=== PATIENT | male | born 1995 ===

== ENCOUNTER 2017-03-13 03:40 | Emergency (ER) | payer SELFPAY ==
[2017-03-13 03:53] VITALS: BP 123/69; PULSE 66; RESP 16; TEMP 98.7; O2SAT 100
--- NOTE | 2017-03-13 05:39 | ED PDOC ---
HPI: Psych/Substance Abuse Time Seen by Provider: 03/13/17 04:00 Chief Complaint (Nursing): Psychiatric Evaluation Chief Complaint (Provider): asad eval Additional Complaint(s): 21yo M in ED for eval of possible SI. His ex-partner called the police stating that she was receiving text messages from pt stating he wanted to kill himself. Pt denies SI/HI or hallucinations. Past Medical History Reviewed: Historical Data, Nursing Documentation, Vital Signs Vital Signs: Last Vital Signs Temp 98.7 F 03/13/17 03:49 Pulse 66 03/13/17 03:49 Resp 16 03/13/17 03:49 BP 123/69 03/13/17 03:49 Pulse Ox 100 03/13/17 03:49 - Medical History PMH: Anxiety, Asthma, Bipolar Disorder, Depression Denies: Diabetes, Hepatitis, HIV, HTN, Chronic Kidney Disease, Seizures, Sexually Transmitted Disease - Surgical History Surgical History: Appendectomy - Family History Family History: States: Unknown Family Hx - Home Medications Home Medications: Ambulatory Orders Medication Instructions Recorded Divalproex [Depakote DR (*BID*)] 250 mg PO BID #60 ect 07/27/16 Olanzapine [Zyprexa] 5 mg PO HS #30 tablet 07/27/16 - Allergies Allergies/Adverse Reactions: Allergies Allergy/AdvReac Type Severity Reaction Status Date / Time shellfish derived Allergy RASH Verified 08/21/16 18:49 Review of Systems ROS Statement: Except As Marked, All Systems Reviewed And Found Negative Psych: Positive for: Depression Physical Exam - Reviewed Nursing Documentation Reviewed: Yes Vital Signs Reviewed: Yes - Physical Exam Appears: Positive for: Well, Non-toxic, No Acute Distress Skin: Positive for: Normal Color, Warm, DRY Eye Exam: Positive for: EOMI, Normal appearance, PERRL Cardiovascular/Chest: Positive for: Regular Rate, Rhythm Respiratory: Positive for: CNT, Normal Breath Sounds Gastrointestinal/Abdominal: Positive for: Normal Exam, Bowel Sounds, Soft Neurologic/Psych: Positive for: Alert, Oriented - ECG O2 Sat by Pulse Oximetry: 100 Medical Decision Making Medical Decision Making: pt placed on 1:1 p[t evaluated by MD Rissa-d/c with bipoloar d/o stable for d/c pt feels comfortable going home at this time. Disposition - Clinical Impression Clinical Impression: Bipolar disorder - Patient ED Disposition Is Patient to be Admitted: No - Disposition Disposition: Routine/Home Disposition Time: 05:44 Condition: STABLE Forms: [employer] (Tuvaluan)
== END 2017-03-13 05:40 | disposition home or self-care (01) ==
LOC: H.ER 03:40
DX: F31.9 Bipolar disorder, unspecified (principal); F41.9 Anxiety disorder, unspecified

== ENCOUNTER 2017-07-02 15:56 | Emergency (ER) | payer MEDICAID ==
[2017-07-02 16:04] VITALS: BP 118/83; PULSE 95; RESP 16; TEMP 97.9; O2SAT 100
--- NOTE | 2017-07-02 16:47 | ED PDOC ---
HPI: Psych/Substance Abuse Time Seen by Provider: 07/02/17 16:05 Chief Complaint (Nursing): Psychiatric Evaluation Chief Complaint (Provider): Psych EVal History Per: Patient History/Exam Limitations: no limitations Onset/Duration Of Symptoms: Other ("all his life") Current Symptoms Are (Timing): Still Present Suicide/Self Injury Attempted (Context): None Additional Complaint(s): 21 y/o male presents to the ED complaining of anxiety, onset according to the patient is "all his life". Patient states that for the majority of his life he has felt anxious and always had racing thoughts. He also feels that he cant move his life forward because of these thoughts. Of note, patient was taking depakote pretty regularly, but stopped 2 weeks ago claiming that he was feeling better. He denies any suicidal or homicidal ideation, and hallucinations. Past Medical History Reviewed: Historical Data, Nursing Documentation, Vital Signs Vital Signs: Last Vital Signs Temp 97.9 F 07/02/17 15:59 Pulse 95 H 07/02/17 15:59 Resp 16 07/02/17 15:59 BP 118/83 07/02/17 15:59 Pulse Ox 100 07/02/17 15:59 - Medical History PMH: Anxiety, Asthma, Bipolar Disorder, Depression Denies: Diabetes, Hepatitis, HIV, HTN, Chronic Kidney Disease, Seizures, Sexually Transmitted Disease - Surgical History Surgical History: Appendectomy - Family History Family History: States: Unknown Family Hx - Social History Current smoker - smoking cessation education provided: No Ex-Smoker (has not smoked in the last 12 months): No Alcohol: None Drugs: Denies - Home Medications Home Medications: Ambulatory Orders Medication Instructions Recorded Divalproex [Depakote DR (*BID*)] 250 mg PO BID #60 ect 07/27/16 Olanzapine [Zyprexa] 5 mg PO HS #30 tablet 07/27/16 - Allergies Allergies/Adverse Reactions: Allergies Allergy/AdvReac Type Severity Reaction Status Date / Time shellfish derived Allergy RASH Verified 08/21/16 18:49 Review of Systems ROS Statement: Except As Marked, All Systems Reviewed And Found Negative Constitutional: Negative for: Fever Psych: Positive for: Anxiety (racing thoughts). Negative for: Suicidal ideation (suicidal or homicidal ), Other (hallucinations) Physical Exam - Reviewed Nursing Documentation Reviewed: Yes Vital Signs Reviewed: Yes - Physical Exam Appears: Positive for: Non-toxic, No Acute Distress Head Exam: Positive for: ATRAUMATIC Skin: Positive for: Normal Color, Warm Eye Exam: Positive for: Normal appearance, EOMI, PERRL Neck: Positive for: Normal, Painless ROM, Supple Cardiovascular/Chest: Positive for: Regular Rate, Rhythm. Negative for: Murmur Respiratory: Positive for: Normal Breath Sounds. Negative for: Respiratory Distress Gastrointestinal/Abdominal: Positive for: Normal Exam, Soft. Negative for: Tenderness Back: Positive for: Normal Inspection Extremity: Positive for: Normal ROM. Negative for: Pedal Edema, Deformity Neurologic/Psych: Positive for: Alert, Oriented, Mood/Affect (crying, but easily consolable and cooperative). Negative for: Motor/Sensory Deficits - ECG O2 Sat by Pulse Oximetry: 100 (RA) Pulse Ox Interpretation: Normal Medical Decision Making Medical Decision Making: Time: --16:07 Impression: --Anxiety Plan: --Crisis Eval Reassess Pt. evaluated by Astrid, carnival worker, who spoke with Dr. Davis and cleared pt. for discharge. Outpt f/u arranged for patient. Scribe Attestation: Documented by Ronal Resendiz acting as a scribe for THOMAS Eaton. Disposition - Clinical Impression Clinical Impression: Bipolar 1 disorder - Patient ED Disposition Is Patient to be Admitted: No - Disposition Disposition: Routine/Home Disposition Time: 17:43 Condition: STABLE Instructions: Bipolar Disorder (ED) Forms: [employer] (Wolof)
== END 2017-07-02 17:57 | disposition home or self-care (01) ==
LOC: H.ER 15:56
DX: F31.9 Bipolar disorder, unspecified (principal); F41.9 Anxiety disorder, unspecified; J45.909 Unspecified asthma, uncomplicated; Z87.891 Personal history of nicotine dependence